=== PATIENT | female | born 1985 | race Caucasian/White ===

== ENCOUNTER 2018-11-22 16:49 | Emergency (ER) | payer OTHER ==
[~2018-11-22] VITALS: Ht 160 cm; Wt 70.3 kg
[2018-11-22 17:10] VITALS: BP 123/78
--- NOTE | 2018-11-22 17:10 | NUR ---
ED Nurse Note: pt walked in to ED due to left earache for 2 months. pt on meds for it. per pt, having feeling dizziness. ambulatory with steady gait. AAO x4. respirations even and non-labored noted. will wait for the further order.
--- NOTE | 2018-11-22 17:51 | Emergency Room Report ---
History of Present Illness General Chief Complaint: Earache Source: Patient Present Illness HPI 33-year-old female presents to the emergency department complaining of 7 out of 10 in severity left ear pain, and posterior neck pain that radiates to the back of her head which has been progressive over a week or so. Patient reports that for the past 2 months she has been dealing with recurrent ear infections in the left ear and she has been on two different antibiotics. reports some muffled hearing in the left ear. denies ear d/c. describes vertigo with spinning sensation that makes her vomit intermittently. last occurrence was [employer] when driving her car. Denies LOC or AMS. Denies CP or palpitations. Allergies: Coded Allergies: SULFA (SULFONAMIDE ANTIBIOTICS) (Verified Allergy, Severe, Rash, 11/22/18) Patient History Past Medical History: see triage record Past Surgical History: none Pertinent Family History: none Last Menstrual Period: 2 weeks Now: No Reviewed Nursing Documentation: PMH: Agreed; PSxH: Agreed Nursing Documentation-PMH Past Medical History: No History, Except For Review of Systems All Other Systems: negative except mentioned in HPI Physical Exam Vital Signs Date Time Temp Pulse Resp B/P (MAP) Pulse Ox O2 Delivery O2 Flow Rate FiO2 11/22/18 17:06 98.4 97 16 123/78 98 Room Air Sp02 EP Interpretation: reviewed, normal General Appearance: no apparent distress, alert, GCS 15, non-toxic Head: normocephalic, atraumatic Eyes: bilateral eye normal inspection, bilateral eye PERRL ENT: hearing grossly normal, normal voice, TMs + canals normal - no appreciable erythema or bulging of the TM's, mild effusion behind both TM's, canals are WNL, no obvious signs of mastoiditis, nasal congestion Neck: full range of motion Respiratory: chest non-tender, lungs clear, normal breath sounds, speaking full sentences Cardiovascular #1: regular rate, rhythm, no edema Gastrointestinal: normal bowel sounds, non tender, soft Rectal: deferred Genitourinary: normal inspection Musculoskeletal: back normal, gait/station normal, normal range of motion, non- tender Neurologic: alert, oriented x3, responsive, motor strength/tone normal, sensory intact, speech normal, grossly normal Psychiatric: judgement/insight normal Skin: normal color, no rash, warm/dry, well hydrated Lymphatic: no adenopathy Medical Decision Making PA Attestation Dr. mora is my supervising Physician whom patient management has been discussed with. Diagnostic Impression: Primary Impression: Vertigo Additional Impression: Earache, right ER Course 33-year-old female presents to the emergency department complaining of 7 out of 10 in severity left ear pain, and posterior neck pain that radiates to the back of her head which has been progressive over a week or so. Patient reports that for the past 2 months she has been dealing with recurrent ear infections in the left ear and she has been on two different antibiotics. reports some muffled hearing in the left ear. denies ear d/c. describes vertigo with spinning sensation that makes her vomit intermittently. last occurrence was [employer] when driving her car. Denies LOC or AMS. Denies CP or palpitations. Ddx considered but are not limited to Mnire's, BPPV, labrinitis, cerebellar stroke, hypovolemia, cardiac cause. Vital signs: are WNL, pt. is afebrile H&PE are most consistent with : possible Labyrinthitis No focal deficit to indicate TIA or CVA. No vertical nystagmus. Better after IV fluid and Ativan. Because of lack of focality and red flags, I see no need for CT scan. We'll discharge home. ORDERS: -CT head no contrast- negative for ICH, EDEMA, or mass -CMP & CBC : WNL -Urine HC: Negative ED INTERVENTIONS: -Toradol and Meclizine ---re-evaluation pt. reports sx's have resolved with these interventions. DISCHARGE: At this time pt. is stable for d/c to home. Will provide printed patient care instructions, and any necessary prescriptions. Care plan and follow up instructions have been discussed with the patient prior to discharge. CT/MRI/US Diagnostic Results CT/MRI/US Diagnostic Results : Imaging Test Ordered: CT HEAD NO CONTRAST Impression No evidence of acute fracture, hemorrhage, or intracranial process Per official radiology report- Please see report for specific details. Last Vital Signs Date Time Temp Pulse Resp B/P (MAP) Pulse Ox O2 Delivery O2 Flow Rate FiO2 11/22/18 17:10 98.4 97 16 123/78 98 Room Air Status: improved Disposition: HOME, SELF-CARE Condition: Stable Scripts Meclizine Hcl* (VERTICALM*) 25 Mg Tablet 25 MG ORAL THREE TIMES A DAY for vertigo for 5 Days, #15 TAB Prov: Bee Mayes 11/22/18 Pseudoephedrine Hcl* (NEXAFED*) 30 Mg Tablet 30 MG ORAL Q6H PRN for congestion, #20 TAB Prov: Bee Mayes 11/22/18 Patient Instructions: Vertigo, [id number] Additional Instructions: Take medications as directed. Follow up with a Primary Care Provider in 3-5 days, even if your symptoms have resolved. May require ENT SPECIALIST EVALUATION --Please review list of primary care clinics, if you do not already have a primary care provider Return sooner to ED if new symptoms occur, or current symptoms become worse. Do not drink alcohol, drive, or operate heavy machinery while taking Meclizine as this may cause drowsiness. - Please note that this Emergency Department Report was dictated using [employer] oracle adf developer technology software, occasionally this can lead to erroneous entry secondary to interpretation by the dictation equipment. Bee Mayes Nov 22, 2018 17:51
[2018-11-22] MEDS ORDERED: Ketorolac 30mg Inj IV ONE (18:00)
[2018-11-22] MEDS ORDERED: Meclizine 25mg tab ORAL PRN (18:00)
[2018-11-22 18:40] LABS: BASOPHILS % (AUTO) 0.9 % (0.0-2.0); EOSINOPHILS % (AUTO) 0.5 % (0.0-3.0); HEMATOCRIT 43.1 % (37.0-47.0); HEMOGLOBIN 14.7 G/DL (12.0-16.0); LYMPHOCYTES % (AUTO) 31.6 % (20.0-45.0); MEAN CORPUSCULAR VOLUME 95 FL (80-99); MONOCYTES % (AUTO) 5.7 % (1.0-10.0); NEUTROPHILS % (AUTO) 61.4 % (45.0-75.0); PLATELET COUNT 207 K/UL (150-450); RED BLOOD COUNT 4.54 M/UL (4.20-5.40); RED CELL DISTRIBUTION WIDTH 11.3 % (11.6-14.8)
[2018-11-22 18:58] LABS: ANION GAP 10 mmol/L (5-15); BLOOD UREA NITROGEN 15 mg/dL (7-18); CALCIUM 9.7 MG/DL (8.5-10.1); CARBON DIOXIDE 25 MMOL/L (21-32); CHLORIDE 105 MMOL/L (98-107); CREATININE 0.8 MG/DL (0.55-1.30); POTASSIUM 4.6 MMOL/L (3.5-5.1); SODIUM 140 MMOL/L (136-145)
[2018-11-22 19:02] LABS: ALANINE AMINOTRANSFERASE 41 U/L (12-78); ALBUMIN/GLOBULIN RATIO 1.1 (1.0-2.7); ALKALINE PHOSPHATASE 52 U/L (46-116); ASPARTATE AMINO TRANSFERASE 25 U/L (15-37); BILIRUBIN,TOTAL 0.4 MG/DL (0.2-1.0)
--- NOTE | 2018-11-22 19:21 | NUR ---
ED Nurse Note: Report given to CAROL Coello. Patient resting in bed without facial grimacing or guarding.
[2018-11-22] MEDS ORDERED: NEXAFED30 MG ORAL (20:11)
[2018-11-22] MEDS ORDERED: VERTICALM25 MG ORAL (20:11)
[2018-11-22 20:17] VITALS: BP 130/80
[2018-11-22 20:19] VITALS: BP 130/80
--- NOTE | 2018-11-22 20:19 | NUR ---
ER DISCHARGE NOTE: Patient is cleared to be discharged per ERMD, pt is aox4, on room air, with stable vital signs. pt was given dc and prescription instructions, pt was able to verbalize understanding, pt id band and iv site removed without complications. pt is able to ambulate with steady gait. pt took all belongings.
--- NOTE | 2018-11-23 12:59 | Diagnostic Imaging Report ---
Indications: Pain, dizziness, left ear ache for 2 months Technique: Spiral acquisitions obtained through the brain. Angled axial and coronal 5 x 5 mm slices were reconstructed. Total dose length product 1362.01 mGycm. CTDI vol(s) 70.38 mGy. Dose reduction achieved using automated exposure control Comparison: None. Findings: No acute intracranial hemorrhage nor edema. No mass effect nor midline shift. Normal soares-white differentiation. Normal-sized ventricles and extra axial CSF spaces. Visualized orbits and sinuses are unremarkable. The calvarium is intact. Impression: Negative This agrees with the preliminary interpretation provided overnight by [facility]erad[facility] service. The CT scanner at [facility] is accredited by the [employer] and the scans are performed using protocols designed to limit radiation exposure to as low as reasonably achievable to attain images of sufficient resolution adequate for diagnostic evaluation.
== END 2018-11-22 20:22 | disposition home or self-care (01) ==
LOC: EMR 17:43
DX: H92.02 Otalgia, left ear (principal); R42 Dizziness and giddiness
CPT/HCPCS: 36415; 70450; 80053; 81025; 85025; 96374; 99284; J1885